=== PATIENT | female | born 1995 | race Caucasian/White ===

== ENCOUNTER 2018-11-01 20:15 | Emergency (ER) | payer OTHER ==
[2018-11-01] MEDS ORDERED: ACETAMINOPHEN 325 MG TABLET PO ONE (23:10)
[2018-11-01] MEDS ORDERED: IBUPROFEN 600 MG TABLET PO ONE (23:10)
--- NOTE | 2018-11-01 23:10 | ER Document Report ---
HPI - HPI Time Seen by Provider: 11/01/18 21:48 Pain Level: 4 Notes: Patient is an otherwise healthy 22-year-old female who presents to the emergency department with complaints of cough, congestion and headache that started yesterday. 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 Patient denies taking any medications for her headache today. Patient denies any nausea, vomiting, diarrhea or fever. - CONSTITUTIONAL Constitutional: REPORTS: Fever - NEURO Neurology: REPORTS: Headache - RESPIRATORY Respiratory: REPORTS: Coughing - REPRODUCTIVE LMP: 10/27/18 Reproductive: DENIES: : Past Medical History - General Information source: Patient - Social History Smoking Status: Never Smoker Frequency of alcohol use: None Drug Abuse: None Family History: Reviewed & Not Pertinent Patient has suicidal ideation: No Patient has homicidal ideation: No Renal/ Medical History: Denies: Hx Peritoneal Dialysis Psychiatric Medical History: Reports: Hx Depression Past Surgical History: Reports: Hx Tonsillectomy - Immunizations Immunizations up to date: Yes Vertical Provider Document - CONSTITUTIONAL Notes: PHYSICAL EXAMINATION: GENERAL: Well-appearing, well-nourished and in no acute distress. HEAD: Atraumatic, normocephalic. EYES: Pupils equal round extraocular movements intact, conjunctiva are normal. ENT: Nares patent with clear rhinorrhea, bilateral TMs unremarkable. NECK: Normal range of motion, no lymphadenopathy. LUNGS: No respiratory distress, lung sounds clear to auscultation bilaterally. Musculoskeletal: Normal range of motion NEUROLOGICAL: Normal speech, normal gait. PSYCH: Normal mood, normal affect. SKIN: Warm, Dry, normal turgor, no rashes or lesions noted. - INFECTION CONTROL TRAVEL OUTSIDE OF THE [place] IN LAST 30 DAYS: No Course - Re-evaluation Re-evalutation: Patient's physical examination is consistent with viral upper respiratory illness. Patient's initial heart rate on arrival was 128 bpm. An EKG was obtained which was found to be a sinus tachycardia with normal axis and no ST segment elevations or depressions. Patient reports her baseline heart rate is 110. Patient's repeat heart rate is 103. Patient has not had any episodes of nausea, vomiting or diarrhea so I have no reason to believe the patient is dehydrated. Patient reports she is drinking water as per her usual. Patient states she believes she was a little anxious when she checked in. Patient was offered headache medication, she is requesting Tylenol and ibuprofen as she states this usually works and she has not tried taking any today. 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 - Vital Signs Vital signs: Temp Pulse Resp BP Pulse Ox 100.2 F 128 H 16 117/76 98 11/01/18 22:14 11/01/18 22:14 11/01/18 22:14 11/01/18 22:14 11/01/18 22:14 Discharge - Discharge Clinical Impression: Flu-like symptoms Condition: Stable Disposition: HOME, SELF-CARE Additional Instructions: Viral Syndrome The physician has diagnosed a viral infection. Viruses not only cause "colds," but can cause many different symptoms including generalized aching, fever, headache, cough, diarrhea, nausea, vomiting, and fatigue. The treatment, for the most part, is simply relief of symptoms. This means that antibiotics are usually not given. Rest, fluids, pain medications and, occasionally, medication for the specific symptoms that are most bothersome will be prescribed. Use good handwashing to avoid passing the virus to others. Shared toys should be cleaned with disinfectant. Clean the toilets, sinks, and counter surfaces in bathrooms. Launder clothing in hot water. Contact the physician if you develop any new or unusual symptoms such as severe headache, stiff neck, high fever, chest pain, productive cough, or shortness of breath. You should be rechecked if you don't see marked improvement within seven to 10 days. Forms: Return to Work
[2018-11-01 23:37] VITALS: BP 104/58
--- NOTE | 2018-11-02 10:44 | EKG REPORT ---
SEVERITY:- BORDERLINE ECG - SINUS TACHYCARDIA PROBABLE LEFT ATRIAL ABNORMALITY : Confirmed by: Jack Rodriguez 02-Nov-2018 10:43:59
== END 2018-11-01 23:35 | disposition home or self-care (01) ==
LOC: ER 20:15
DX: R05 Cough (principal); R51 Headache; R68.89 Other general symptoms and signs
CPT/HCPCS: 93005; 93010; 99283